=== PATIENT | female | born 1970 | race Caucasian/White ===

== ENCOUNTER 2019-03-24 14:11 | Emergency (ER) | payer MEDICARE ==
--- NOTE | 2019-03-24 15:23 | CRLCR ---
INDICATION: Dyspnea TECHNIQUE: Chest radiograph 2 views COMPARISON: None FINDINGS: Mediastinum: The mediastinum is normal in appearance. The heart silhouette is normal in size and morphology. Lung: Both lungs are unremarkable in appearance. No sign of pleural effusion seen. No pneumothorax is identified. Bone and Soft tissue: Unremarkable for age. On the lateral exam, there is a convex density along the anterior inferior chest wall measuring 3.3 x 1.8 cm. IMPRESSION: 1. On the lateral exam, there is a convex density along the anterior inferior chest wall measuring 3.3 x 1.8 cm. This may represent a summation artifact with overlying soft tissue. Comparison with any prior outside imaging is recommended. If these cannot be obtained, assessment with outpatient chest CT or follow-up chest radiograph in 3 months is recommended. Dictated by John Pascual MD @ 03/24/2019 3:21:59 PM Dictated by: John Pascual MD @ 03/24/2019 15:22:07 (Electronically Signed)
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
== END 2019-03-24 15:54 | disposition home or self-care (01) ==
LOC: JP.ED 14:11
DX: M94.0 Chondrocostal junction syndrome [Tietze] (principal); J44.9 Chronic obstructive pulmonary disease, unspecified; F31.9 Bipolar disorder, unspecified; F17.210 Nicotine dependence, cigarettes, uncomplicated; Z79.899 Other long term (current) drug therapy
CPT/HCPCS: 71046; 93005; 93010; 99283; 99285-25

== ENCOUNTER 2019-08-08 21:15 | Emergency (ER) | payer MEDICARE ==
[2019-08-08] MEDS ORDERED: HYDROmorphone 1 MG/ML Syringe IM ONE (21:21)
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
[2019-08-08] MEDS ORDERED: Diphtheria,Pertussis(Acell),Tetanus Vaccine 0.5 ML SDV IM ONE (21:46)
[2019-08-08] MEDS ORDERED: Bacitracin Oint 1 GM U/D Packet TOP ONE (21:46)
--- NOTE | 2019-08-08 22:15 | CRLCT ---
Indication: Injury Technique: Nonenhanced axial CT imaging through the head. Sagittal and coronal reconstructions are provided. Comparison: None Findings: There is no intracranial hemorrhage, edema, or mass effect. There is normal attenuation of the brain parenchyma. The ventricles are normal in size. The basal cisterns are patent. The calvarium is intact. The visualized paranasal sinuses and mastoid air cells are aerated. Right supraorbital skin laceration is noted. Impression: No acute intracranial process. Please note that all CT scans at this facility use dose modulation, iterative reconstruction, and/or weight-based dosing when appropriate to reduce radiation dose to as low as reasonably achievable. Dictated by Piedad Martel MD @ Aug 08 2019 10:12PM Signed by Dr. Piedad Martel @ Aug 08 2019 10:14PM
[2019-08-08] MEDS ORDERED: Bacitracin Oint 1 GM U/D Packet ONE (23:13)
--- NOTE | 2019-08-09 09:12 | CR ---
CHEST: 2 view CLINICAL HISTORY:Injury COMPARISON:03/24/2019 FINDINGS: Lungs are clear. There is no pneumothorax. Heart and pulmonary vascularity appear normal. On the lateral image there is a pleural-based convexity anteriorly overlying the heart silhouette. This is present on the March study and is unchanged.. Impression: No acute cardio pelvic process Pleural-based the density is again seen on the lateral image anteriorly. Follow-up two-view chest in 4-6 months recommended
--- NOTE | 2019-08-09 09:13 | CR ---
Foot Comp Min 3V Rt CLINICAL HISTORY: Right foot pain, trauma FINDINGS: Patient is a displaced fracture the base of the fifth metatarsal there is mild narrowing of the first MTP joint IMPRESSION: Fracture through base of fifth metatarsal.
== END 2019-08-09 00:40 | disposition home or self-care (01) ==
LOC: JP.ED 21:15
DX: S92.351A Displaced fracture of fifth metatarsal bone, right foot, initial encounter for closed fracture (principal); S51.011A Laceration without foreign body of right elbow, initial encounter; S01.111A Laceration without foreign body of right eyelid and periocular area, initial encounter; J44.9 Chronic obstructive pulmonary disease, unspecified; F31.9 Bipolar disorder, unspecified; Z23 Encounter for immunization; Y04.0XXA Assault by unarmed brawl or fight, initial encounter; Z79.899 Other long term (current) drug therapy
CPT/HCPCS: 12001; 12013; 70450; 71046; 73630; 90471; 90715; 96372; 99283; 99285; J1170; J2001

== ENCOUNTER 2022-02-01 00:45 | Emergency (ER) | payer MEDICARE ==
[2022-02-01] MEDS ORDERED: Lidocaine 1% 5 ML VIAL INJECT ONE (00:58)
[2022-02-01] MEDS ORDERED: Lactated Ringers 1,000 ML IV SCH (01:00)
[2022-02-01] MEDS ORDERED: Ketorolac 30 MG/ML SDV IVPUSH ONE (01:07)
[2022-02-01 01:15] LABS: ESTIMATED GFR 61 mL/min (>60)
[2022-02-01] MEDS ORDERED: Albuterol/Ipratropium 3.0-0.5 MG/3 ML Neb Soln NEB ONE (01:52)
[2022-02-01] MEDS ORDERED: Bacitracin Oint 1 GM U/D Packet TOP ONE (02:01)
== END 2022-02-01 09:44 | disposition home or self-care (01) ==
LOC: JP.ED 00:45
DX: S61.412A Laceration without foreign body of left hand, initial encounter (principal); T42.4X4A Poisoning by benzodiazepines, undetermined, initial encounter; F10.120 Alcohol abuse with intoxication, uncomplicated; Y90.5 Blood alcohol level of 100-119 mg/100 ml; J44.9 Chronic obstructive pulmonary disease, unspecified; F41.9 Anxiety disorder, unspecified; F32.A Depression, unspecified; F17.210 Nicotine dependence, cigarettes, uncomplicated; W22.8XXA Striking against or struck by other objects, initial encounter
CPT/HCPCS: 12042; 36415; 80053; 80143; 80179; 80305; 80307; 85025; 94640; 96374; 99284; 99285; J1885; J7120; J7620